=== PATIENT | male | born 1960 | race Caucasian/White ===

== ENCOUNTER → 2017-01-27 | Outpatient (CLI) | payer OTHER ==
--- NOTE | 2017-01-27 09:58 | KCIC ---
Indication: Chronic left hip pain. Time of exam 9:41 AM Femoral acetabular alignment is normal. The femoral head and neck are intact. Joint spaces well-maintained. No fractures are seen. IMPRESSION: No acute abnormality is detected. Electronically signed by: Miguel Torres MD (01/27/2017 9:55 AM) [id number]
== END | disposition home or self-care (01) ==
LOC: KCIC 09:33
PROVIDERS: ATTEND Family Medicine
DX: M25.552 Pain in left hip (principal); G89.29 Other chronic pain
CPT/HCPCS: 73502